=== PATIENT | male | born 1960 | race Caucasian/White ===

== ENCOUNTER 2021-08-12 16:21 | Outpatient (REF) | payer OTHER, SELFPAY ==
[2021-08-12 18:49] LABS: Abs Immature Grans 0.04 10^3/uL (0.0-0.06); Absolute Basophil Count 0.01 10^3/uL (0.0-0.2); Absolute Eosinophil Count 0.01 10^3/uL (0.0-0.7); Absolute Lymphocyte Count 0.44 10^3/uL (1.2-3.4); Absolute Monocyte Count 0.14 10^3/uL (0.1-0.8); Absolute Neutrophil Count 5.02 10^3/uL (1.2-6.7); Basophils % 0.2; Eosinophils % 0.2; HCT 29.5 % (40.0-50.0); HGB 9.1 g/dL (13.5-17.5); Immature Grans % 0.7; Lymphocytes % 7.8; MCH 29.4 pg (27.0-33.0); MCHC 30.8 % (32.0-36.0); MCV 95.5 fL (80-95); MPV 11.5 fL (8.0-11.0); Monocytes % 2.5; Neutrophils % 88.6; Nucleated RBC 0 %; Platelet Count 145 10^3/uL (130-400); RBC 3.09 10^6/uL (4.36-5.78); RDW 17.8 % (11.8-14.1); RDW-SD 62.3 fL; WBC 5.66 10^3/uL (4.4-10.8)
[2021-08-12 19:06] LABS: ALT 15 U/L (16-63); AST 27 U/L (15-37); Albumin 2.1 g/dL (3.4-5.0); Alkaline Phosphatase 102 U/L (46-116); Anion Gap 10.3 mmol/L (3-11); BUN 26 mg/dL (7-18); Bilirubin, Total 0.2 mg/dL (0.2-1.0); CO2 23.7 mmol/L (21.0-32.0); CREATININE 1.2 mg/dL (0.70-1.30); Calcium 7.8 mg/dL (8.5-10.1); Chloride 102 mmol/L (98-107); Glucose 120 mg/dL (74-106); Potassium 4.3 mmol/L (3.5-5.1); Sodium 136 mmol/L (136-145); Total Protein 5.1 g/dL (6.4-8.2)
== END 2021-08-12 16:22 | disposition home or self-care (01) ==
LOC: LBN 16:21
PROVIDERS: PCP Nurse Practitioner; Visit Provider Nurse Practitioner Family
DX: C34.90 Malignant neoplasm of unspecified part of unspecified bronchus or lung (principal)
CPT/HCPCS: 80053; 85025

== ENCOUNTER 2021-08-18 11:03 | Emergency (ER) | payer OTHER, SELFPAY ==
[2021-08-18] VITALS (35 sets, daily range): BP systolic 80–126; BP diastolic 37–74; PULSE 40–112; RESP 11–31; TEMP 36.7; O2SAT 91–98
--- NOTE | 2021-08-18 11:35 | ED.GENADUL_ITS ---
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 Primary Care Provider: Forrest Allred ED Provider: Delta Kolb Home Meds and New Rx's Prescriptions: New dexamethasone 4 mg tablet 4 mg PO BID 10 Days Qty: 20 RF: 0 Continued methocarbamol 500 mg Tablet 500 mg PO QID RF: 0 thiamine HCl (vitamin B1) 100 mg Tablet 100 mg PO DAILY RF: 0 melatonin 3 mg Tablet 3 mg PO HS RF: 0 sulfamethoxazole-trimethoprim 800-160 mg Tablet See Rx Instructions .ROUTE .COMPLEX RF: 0 omeprazole 40 mg Capsule,Delayed Release(Dr/Ec) 40 mg PO DAILY RF: 0 acetaminophen 500 mg Tablet 1,000 mg PO BID RF: 0 oxycodone 15 mg Tablet 15 mg PO Q4H PRN (Reason: Pain) RF: 0 magnesium hydroxide 400 mg/5 mL Suspension 30 ml PO PRN PRNRF: 0 tamsulosin 0.4 mg Capsule 0.4 mg PO DAILY RF: 0 carboxymethylcellulose sodium 0.5 % Drops 1 drp ophthalmic (eye) QID RF: 0 ascorbic acid (vitamin C) 250 mg Tablet 250 mg PO DAILY RF: 0 bisacodyl [Dulcolax (bisacodyl)] 10 mg Suppository 10 mg DE PRN PRN (Reason: Constipation) RF: 0 lidocaine 5 % Adhesive Patch,Medicated 1 patch topical DAILY RF: 0 Fleet Enema 19-7 gram/118 mL Enema 118 ml DE PRN PRNRF: 0 folic acid 1 mg Tablet 1 mg PO DAILY RF: 0 mirtazapine 15 mg Tablet 15 mg PO DAILY RF: 0 polyethylene glycol Powder 1 pwd MISCELLANEOUS DAILY PRNRF: 0 enoxaparin 80 mg/0.8 mL Syringe 80 mg subcut BID RF: 0 memantine 10 mg Tablet 10 mg PO BID RF: 0 diclofenac sodium 1 % Gel 1 applic TOPICAL TID PRN (Reason: Pain) RF: 0 oxycodone 15 mg Tablet Extended Release 12 Hr 15 mg PO BID RF: 0 magnesium oxide 400 mg magnesium Tablet 400 mg PO DAILY RF: 0 No Action dexamethasone 4 mg Tablet 4 mg PO DAILY RF: 0 Discharge Instructions Additional Instructions: I discussed your case today with your Esthela as well as your palliative care team at the [facility], [facility]. Your care team requested we increase dexamethasone back to 4 mg twice daily. May apply the calmoseptine to affected area of the left groin 2-4 times daily and after incontinence. Tamsulosin is working towards getting you transferred there towards the end of the week. Your imaging today showed persistent left leg DVT as well as what appears to be a new bladder mass that is started to obstruct the outflow of the left kidney. You should have repeat basic chemistries performed in 48 hours. Medical Decision Making 61-year-old male with widely metastatic carcinoma who is DNR/DNI and living at rehabilitation facility presents with what is reported to be days of pelvic edema and skin ulceration, now with slight hypotension. He also has a history of DVT and is anticoagulated. He has inguinal ulceration on the left with firm indurated skin surrounding. I am concerned for underlying carcinoma. Patient IV access established, given a fluid bolus. Referred for laboratory testing, CT imaging, and a wound consult was obtained. The patient has what appears to be new left-sided urinary bladder mass causing moderate left hydronephrosis. There is diffuse edema in the subcutaneous tissues as well as heterogeneous enhancement of the left pelvic and thigh musculature, there are sclerotic lesions in the L2 vertebral body. See formal report. Patient has had a known DVT for which she is anticoagulated, today there is evidence of persistent perineal/tibial trunk thrombosis. Review awake labs reveal white count 6, hematocrit 29, platelets 159. Chemistries show BUN 20 with creatinine 1.1. LFTs unremarkable. Albumin 2.0. Patient evaluated in consultation by wound management and we will have the patient use calmoseptine 2-4 times per day and after incontinent episodes. The patient's blood pressure improved with fluid resuscitation. I discussed his case with his Esthela who states her understanding was he was referred to the ER so that he may be transferred to the [facility] to the palliative care service. I spoke to both the house steward/stewardess at the [facility] as well as the patient's palliative care team, [facility]. They are unable to accept in transfer but are hopeful that the patient may able to transfer towards the end of the week. I will fax our work-up today to their attention at [phone]. Patient is improved. He will require close monitoring and further discussion with oncology of pursuing more treatment. [facility] I will return him to dexamethasone 4 mg twice daily, I will ask for labs to be checked every 48 hours, and they will continue to work towards transferring towards the end of the week. Radiology report: Lung Bases: There is a small left pleural effusion and subjacent infiltrate which may represent atelectasis or pneumonia. Basilar pulmonary fibrosis. Coronary artery calcifications. Liver: Normal density. No measurable mass. Portal, Superior Mesenteric, and Splenic Veins: Unremarkable. Gallbladder and Biliary Tract: No radiodense calculus or dilation. Pancreas: Normal density, no abnormal calcifications or inflammatory process. Spleen: Normal. Adrenals: Both adrenal glands are thickened. The left adrenal gland measures 2.3 x 2.9 cm. The right adrenal gland measures 2.4 x 1.2 cm. Kidneys: The right kidney is unremarkable without evidence of hydronephrosis, calculus or mass. There is moderate hydronephrosis of the left kidney to the level of the urinary bladder. There is asymmetric thickening along the left aspect of the wall of the urinary bladder suspicious for mass. Urinary bladder neoplasm should be considered. The focal wall thickening measures 5.3 x 1.8 cm. No radiodense stones or obstructive uropathy. No masses seen. Abdominal Aorta: Abdominal portion non-dilated. Moderate atherosclerosis. Bowel: No obstruction or bowel wall thickening. Appendix is unremarkable. There is diverticulosis of the colon, but no evidence of acute diverticulitis. Peritoneal Cavity: No ascites, collection or mesenteric inflammatory response. No free air. Lymph Nodes: There are enlarged lymph nodes seen in the inguinal region. The largest on the left measures 1.5 cm. The largest on the right measures 1.8 cm. Bones: There are sclerotic foci seen in the L2 vertebral body, in the pelvis and right femur suspicious for metastatic disease. Soft Tissues: There is diffuse edema in the subcutaneous tissues consistent with anasarca. There is heterogeneous enhancement of the left pelvic and thigh musculature. (Series 7, image [id number].) PELVIS: Bladder: Please see the above discussion. Reproductive Organs: Unremarkable as visualized. Lymph Nodes: Within normal limits. Bones: Findings of osseous metastatic disease as described above. IMPRESSION: 1. Left-sided urinary bladder mass causing moderate left hydronephrosis. Bladder neoplasm is suspected. 2. Bilateral enlarged adrenal glands, sclerotic bony lesions and enlarged pelvic lymph nodes suspicious for metastatic disease 3. Small left pleural effusion and subjacent infiltrate. Lab Data Lab results reviewed: Yes I reviewed the patient's lab results. Labs: Laboratory Results - last 24 hr 08/18/21 08/18/21 08/18/21 11:35 11:35 14:55 WBC 6.87 RBC 3.07 L Hgb 9.2 L Hct 29.8 L MCV 97.1 H MCH 30.0 MCHC 30.9 L RDW 17.7 H Plt Count 159 MPV 10.6 Immature Gran % 0.6 Neutrophils % 86.6 Lymphocytes % 6.6 Monocytes % 6.0 Eosinophils % 0.1 Basophils % 0.1 Nucleated RBC % 0 Absolute Neutrophils 5.95 Absolute Lymphocytes 0.45 L Absolute Monocytes 0.41 Absolute Eosinophils 0.01 Absolute Basophils 0.01 Sodium 138 Potassium 3.5 Chloride 104 Carbon Dioxide 25.4 Anion Gap 8.6 BUN 20 H Creatinine 1.1 Estimated GFR/1.73 m2 >= 60.00 Glucose 95 Calcium 7.9 L Magnesium 1.8 Total Bilirubin 0.3 AST 24 ALT 13 L Alkaline Phosphatase 92 Total Protein 5.6 L Albumin 2.0 L Urine Color Yellow Urine Clarity Clear Urine pH 7.0 Ur Specific Benton 1.015 Urine Protein Trace H Urine Ketones 15 H Urine Blood Negative Urine Nitrite Negative Urine Bilirubin Negative Urine Urobilinogen 0.2 Ur Leukocyte Esterase Negative Urine RBC Negative Urine WBC 0-2 Ur Epithelial Cells Few Urine Crystals Negative Urine Bacteria Negative Urine Mucus Negative Ur Culture Indicated? No Urine Glucose Negative HPI General Mode of arrival: ambulatory . Date/Time Provider Initiated Documentation: 08/18/21 11:04 . Limitations to Documentation: no limitations . Information obtained by: patient . History of Present Illness 61 year old M presents to the emergency department with the chief complaint of Pelvic edema and skin ulcerations, described as moderate, Quality is described as dull and constant, Patient reports no radiation. Patient started experiencing this unknown and it has been constant. No relieving factors improve symptom(s), No exacerbating factors reported . Patient notes rash; denies fever/chills. Related Data Home Medications Medication Instructions Recorded Confirmed Fleet Enema 118 ml DE PRN PRN 08/18/21 08/18/21 acetaminophen 1,000 mg PO BID 08/18/21 08/18/21 ascorbic acid (vitamin C) 250 mg PO DAILY 08/18/21 08/18/21 bisacodyl [Dulcolax (bisacodyl)] 10 mg DE PRN PRN 08/18/21 08/18/21 carboxymethylcellulose sodium 1 drp OPHTHALMIC (EYE) QID 08/18/21 08/18/21 dexamethasone 4 mg PO BID 10 Days #20 tab 08/18/21 dexamethasone 4 mg PO DAILY 08/18/21 08/18/21 diclofenac sodium 1 applic TOPICAL TID PRN 08/18/21 08/18/21 enoxaparin 80 mg SUBCUT BID 08/18/21 08/18/21 folic acid 1 mg PO DAILY 08/18/21 08/18/21 lidocaine 1 patch TOPICAL DAILY 08/18/21 08/18/21 magnesium hydroxide 30 ml PO PRN PRN 08/18/21 08/18/21 magnesium oxide 400 mg PO DAILY 08/18/21 08/18/21 melatonin 3 mg PO HS 08/18/21 08/18/21 memantine 10 mg PO BID 08/18/21 08/18/21 methocarbamol 500 mg PO QID 08/18/21 08/18/21 mirtazapine 15 mg PO DAILY 08/18/21 08/18/21 omeprazole 40 mg PO DAILY 08/18/21 08/18/21 oxycodone 15 mg PO BID 08/18/21 08/18/21 oxycodone 15 mg PO Q4H PRN 08/18/21 08/18/21 polyethylene glycol 1 pwd MISCELLANEOUS DAILY PRN 08/18/21 08/18/21 sulfamethoxazole-trimethoprim See Rx Instructions .ROUTE .COMPLEX 08/18/21 08/18/21 tamsulosin 0.4 mg PO DAILY 08/18/21 08/18/21 thiamine HCl (vitamin B1) 100 mg PO DAILY 08/18/21 08/18/21 Previous Rx's Medication Instructions Recorded dexamethasone 4 mg PO BID 10 Days #20 tab 08/18/21 Allergies Allergy/AdvReac Type Severity Reaction Status Date / Time atorvastatin Allergy Unverified 08/18/21 12:09 codeine Allergy Unverified 08/18/21 12:09 General Stated Complaint: GenMedical AD: 2 Review of Systems Narrative: Patient unable to relate recent history. Unobtainable due to mental status PFSH Social History Smoking risk assessment performed?: No Do you feel safe at home: Yes Do you feel safe in your relationship?: Yes Exam Narrative Exam Narrative: GEN: awake,well groomed, interactive. HEAD: Normocephalic, atraumatic ENT: Mucous membranes moist, oropharynx unremarkable, External ear exam unremarkable EYES: PERRL, EOMI NECK: Full ROM, no PRADEEP, no menigismus CHEST/RESP: Nontender, clear to auscultation bilateral, no wheeze/rhonchi/rales CARDIOVASCULAR: RRR, no murmur, rub dallin. 2+ Rad pulse bilateral ABDOMEN: Soft, nontender, no mass. +Bowel sounds Pelvic: There is scrotal edema, perineal edema, left inguinal skin ulceration present. The surrounding left and right inguinal creases are firm and thickened superficial tissues. EXT: Full ROM, left greater than right lower extremity edema. Neuro: Grossly normal neurologic exam, conversant, interactive but not oriented to time or place. Psych: Speech fluent, thoughts congruent, affect normal Course Vital Signs Vital signs: Vital Signs Temperature 36.7 C 08/18/21 11:08 Pulse 55 L 08/18/21 11:08 Respiratory Rate 16 08/18/21 11:08 Blood Pressure 80/46 L 08/18/21 11:08 Pulse Oximetry 93 08/18/21 11:08 Temperature 36.7 C 08/18/21 11:08 Temperature Source Skin 08/18/21 11:08 Pulse 55 L 08/18/21 11:08 Respiratory Rate 16 08/18/21 11:08 Blood Pressure 80/46 L 08/18/21 11:08 Blood Pressure Position Supine 08/18/21 11:08 Pulse Oximetry 93 08/18/21 11:08 Oxygen Delivery Method Room Air 08/18/21 11:08 Oxygen Flow Rate 0 08/18/21 11:08 Pain Level 7 08/18/21 11:08
[2021-08-18 11:45] LABS: Abs Immature Grans 0.04 10^3/uL (0.0-0.06); Absolute Basophil Count 0.01 10^3/uL (0.0-0.2); Absolute Eosinophil Count 0.01 10^3/uL (0.0-0.7); Absolute Lymphocyte Count 0.45 10^3/uL (1.2-3.4); Absolute Monocyte Count 0.41 10^3/uL (0.1-0.8); Absolute Neutrophil Count 5.95 10^3/uL (1.2-6.7); Basophils % 0.1; Eosinophils % 0.1; HCT 29.8 % (40.0-50.0); HGB 9.2 g/dL (13.5-17.5); Immature Grans % 0.6; Lymphocytes % 6.6; MCHC 30.9 % (32.0-36.0); MCV 97.1 fL (80-95); MPV 10.6 fL (8.0-11.0); Neutrophils % 86.6; Nucleated RBC 0 %; Platelet Count 159 10^3/uL (130-400); RBC 3.07 10^6/uL (4.36-5.78); RDW 17.7 % (11.8-14.1); RDW-SD 62.8 fL; WBC 6.87 10^3/uL (4.4-10.8)
[2021-08-18] MEDS: Normal Saline 1,000 ML 1000 ML IV ×2 (11:53→14:26)
[2021-08-18 11:58] LABS: ALT 13 U/L (16-63); AST 24 U/L (15-37); Alkaline Phosphatase 92 U/L (46-116); Anion Gap 8.6 mmol/L (3-11); BUN 20 mg/dL (7-18); Bilirubin, Total 0.3 mg/dL (0.2-1.0); CO2 25.4 mmol/L (21.0-32.0); CREATININE 1.1 mg/dL (0.70-1.30); Calcium 7.9 mg/dL (8.5-10.1); Chloride 104 mmol/L (98-107); Glucose 95 mg/dL (74-106); Magnesium 1.8 mg/dL (1.8-2.4); Potassium 3.5 mmol/L (3.5-5.1); Sodium 138 mmol/L (136-145); Total Protein 5.6 g/dL (6.4-8.2)
--- NOTE | 2021-08-18 12:00 | DI.US_ITS ---
Exam(s) US LOWER EXTREMITY VENOUS LT EXAM: US LOWER EXTREMITY VENOUS LT CLINICAL HISTORY: metastatic cancer, swelling TECHNIQUE: Left lower extremity venous ultrasound performed using grayscale, color-flow, and spectra l Doppler analysis. COMPARISON: No exams were available for comparison FINDINGS: The left common femoral, femoral and popliteal veins demonstrate normal compressibility, augmentation , and color Doppler. The posterior tibial veins are patent. There is thrombus seen in the proximal l eft peroneal vein. It measures 4 cm in length. The saphenofemoral junction is unremarkable. There is no evidence of a Doyle cyst. The soft tissues are unremarkable. IMPRESSION: Thrombus seen in the left peroneal vein measuring 4 cm in length. DATA REPOSITORY:
--- NOTE | 2021-08-18 12:15 | DI.RAD_ITS ---
Exam(s) XR PORTABLE CHEST AP EXAM: XR PORTABLE CHEST AP CLINICAL HISTORY: Question power port, hx lung cancer TECHNIQUE: 2D digital imaging was performed of the chest. Two images were obtained. AP views were obtained. COMPARISON: No exams were available for comparison FINDINGS: MEDIASTINUM: Normal. HEART: Normal. PULMONARY VASCULATURE: Normal. LUNGS: No focal consolidating infiltrates. Mildly prominent and diffuse interstitial markings. This may be chronic, but a pneumonia or pulmonary edema cannot be excluded. PLEURAL SPACE: No pleural effusion or pneumothorax. BONE:Within normal limits for the patient's age. OTHER FINDINGS:The right IJ catheter is in good position. The tip is at the junction of the superior vena cava and right atrium. IMPRESSION: Mild prominence of the interstitium. This may be chronic, however an acute pneumonia or pulmonary ed thu cannot be excluded. DATA REPOSITORY: RADIATION DOSE DELIVERED:
--- NOTE | 2021-08-18 13:06 | DI.CT_ITS ---
Exam(s) CT ABDOMEN PELVIS W EXAM: CT ABDOMEN PELVIS W CLINICAL HISTORY: met cancer, pelvic congestion, edema, skin ulcerat TECHNIQUE: Imaging Protocol: Axial computed tomography images with coronal and sagittal reformatted images were created and reviewed CONTRAST MATERIAL: Intravenous: Omnipaque 350 Contrast volume:100 mL Oral: No COMPARISON: No exams were available for comparison FINDINGS: Results of this exam have been verbally communicated with provider. ABDOMEN: Lung Bases: There is a small left pleural effusion and subjacent infiltrate which may represent atele ctasis or pneumonia. Basilar pulmonary fibrosis. Coronary artery calcifications. Liver: Normal density. No measurable mass. Portal, Superior Mesenteric, and Splenic Veins: Unremarkable. Gallbladder and Biliary Tract: No radiodense calculus or dilation. Pancreas: Normal density, no abnormal calcifications or inflammatory process. Spleen: Normal. Adrenals: Both adrenal glands are thickened. The left adrenal gland measures 2.3 x 2.9 cm. The righ t adrenal gland measures 2.4 x 1.2 cm. Kidneys: The right kidney is unremarkable without evidence of hydronephrosis, calculus or mass. Ther e is moderate hydronephrosis of the left kidney to the level of the urinary bladder. There is asymme tric thickening along the left aspect of the wall of the urinary bladder suspicious for mass. Urinar y bladder neoplasm should be considered. The focal wall thickening measures 5.3 x 1.8 cm. No radiod ense stones or obstructive uropathy. No masses seen. Abdominal Aorta: Abdominal portion non-dilated. Moderate atherosclerosis. Bowel: No obstruction or bowel wall thickening. Appendix is unremarkable. There is diverticulosis of the colon, but no evidence of acute diverticulitis. Peritoneal Cavity: No ascites, collection or mesenteric inflammatory response. No free air. Lymph Nodes: There are enlarged lymph nodes seen in the inguinal region. The largest on the left beto sures 1.5 cm. The largest on the right measures 1.8 cm. Bones: There are sclerotic foci seen in the L2 vertebral body, in the pelvis and right femur suspicio us for metastatic disease. Soft Tissues: There is diffuse edema in the subcutaneous tissues consistent with anasarca. There is heterogeneous enhancement of the left pelvic and thigh musculature. (Series 7, image [id number] .) PELVIS: Bladder: Please see the above discussion. Reproductive Organs: Unremarkable as visualized. Lymph Nodes: Within normal limits. Bones: Findings of osseous metastatic disease as described above. IMPRESSION: 1. Left-sided urinary bladder mass causing moderate left hydronephrosis. Bladder neoplasm is suspect ed. 2. Bilateral enlarged adrenal glands, sclerotic bony lesions and enlarged pelvic lymph nodes suspicio us for metastatic disease 3. Small left pleural effusion and subjacent infiltrate. 4. Results of this exam have been verbally communicated with provider. RADIATION DOSE DELIVERED: 832.28mGy.cm Total DLP DATA REPOSITORY: All CT scans at this facility are submitted to the National Radiology Data Registry (NRDR) Dose Index Registry (DIR) with the [employer] ([employer]). RADIATION OPTIMIZATION: All CT scans at this facility use at least one of these dose optimization te chniques: automated exposure control; mA and/or kV adjustment per patient size (includes targeted exa ms where dose is matched to clinical indication); or iterative reconstruction.
[2021-08-18] MEDS: Omnipaque 350 MG/ML 100 ML BTL IJ (13:11)
[2021-08-18] MEDS: Normal Saline Flush 10 ML SYR IVP (13:13)
[2021-08-18 15:17] LABS: Bilirubin Negative (Negative); Blood Negative (Negative); Clarity Clear (Clear); Glucose Negative (Negative); Ketones 15 mg/dL (Negative); Leukocyte Esterase Negative (Negative); Nitrite Negative (Negative); Specific Gravity 1.015 (1.005-1.025); Urobilinogen 0.2 EU/dL (Up TO 0.2)
[2021-08-18] MEDS: HYDROmorphone 2 MG/ML VIAL 0.5 MG IVP (15:33)
[2021-08-18 15:36] LABS: Bacteria Negative HPF (Negative); C & S Indicated? No; Crystals Negative HPF (Negative); Epithelial Cells Few HPF (Negative); Mucus Negative (Negative); RBC Negative HPF (0-2); WBC 0-2 HPF (0-5)
[2021-08-18] MEDS: Dexamethasone 4 MG/ML VIAL IVP (15:38)
[2021-08-18] MEDS: Heparin 500 UNITS/5 ML SYRINGE (16:23)
--- NOTE | 2021-08-18 19:39 | WOUNDCON1 ---
- If Service Date Differs Date of service: 08/18/21 Time of Service: 12:00 Wound Initial Evaluation Narrative: Pt refused photographs. One time opinion requested by MD. Pt has 2 ulcerations on left side of groin and redness. Entire area from pubis down into groin and upper thighs is indurated (hard). Doesn't look infected, MD suspects CA and would appreciate a treatment geared towards comfort. Recommend applying Calmoseptine 2-4 times a day and with each incontinent episode for its soothing effect @ this time. Thank you for the consult.
--- NOTE | 2021-08-19 14:42 | NUR.NOTE ---
Nursing Note: [facility] asking [facility] I accessed the record and told them that [facility]. Ingris Oconnor
== END 2021-08-18 16:25 | disposition skilled nursing facility (03) ==
PROVIDERS: Emergency Provider Emergency Medicine; PCP Nurse Practitioner
DX: C79.11 Secondary malignant neoplasm of bladder (principal); R60.0 Localized edema; L98.498 Non-pressure chronic ulcer of skin of other sites with other specified severity; I95.9 Hypotension, unspecified; I82.492 Acute embolism and thrombosis of other specified deep vein of left lower extremity; C34.90 Malignant neoplasm of unspecified part of unspecified bronchus or lung
CPT/HCPCS: 80053; 96361; 96374; 96375; 99285; 71045; 74177; 81003; 81015; 83735; 85025; 93971; J1100; J3490

== ENCOUNTER 2021-08-21 17:49 | Emergency (ER) | payer OTHER, SELFPAY ==
[2021-08-21 17:49] VITALS: PULSE 66; RESP 14; TEMP 36.9; O2SAT 96
--- NOTE | 2021-08-21 18:22 | ED.GENADUL_ITS ---
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 Primary Care Provider: Forrest Allred ED Provider: Delta Kolb Home Meds and New Rx's Prescriptions: Continued methocarbamol 500 mg Tablet 500 mg PO QID RF: 0 thiamine HCl (vitamin B1) 100 mg Tablet 100 mg PO DAILY RF: 0 melatonin 3 mg Tablet 3 mg PO HS RF: 0 sulfamethoxazole-trimethoprim 800-160 mg Tablet See Rx Instructions .ROUTE .COMPLEX RF: 0 omeprazole 40 mg Capsule,Delayed Release(Dr/Ec) 40 mg PO DAILY RF: 0 acetaminophen 500 mg Tablet 1,000 mg PO BID RF: 0 oxycodone 15 mg Tablet 15 mg PO Q4H PRN (Reason: Pain) RF: 0 magnesium hydroxide 400 mg/5 mL Suspension 30 ml PO PRN PRNRF: 0 tamsulosin 0.4 mg Capsule 0.4 mg PO DAILY RF: 0 carboxymethylcellulose sodium 0.5 % Drops 1 drp ophthalmic (eye) QID RF: 0 ascorbic acid (vitamin C) 250 mg Tablet 250 mg PO DAILY RF: 0 bisacodyl [Dulcolax (bisacodyl)] 10 mg Suppository 10 mg CO PRN PRN (Reason: Constipation) RF: 0 dexamethasone 4 mg Tablet 4 mg PO DAILY RF: 0 lidocaine 5 % Adhesive Patch,Medicated 1 patch topical DAILY RF: 0 Fleet Enema 19-7 gram/118 mL Enema 118 ml CO PRN PRNRF: 0 folic acid 1 mg Tablet 1 mg PO DAILY RF: 0 mirtazapine 15 mg Tablet 15 mg PO DAILY RF: 0 polyethylene glycol Powder 1 pwd MISCELLANEOUS DAILY PRNRF: 0 enoxaparin 80 mg/0.8 mL Syringe 80 mg subcut BID RF: 0 memantine 10 mg Tablet 10 mg PO BID RF: 0 diclofenac sodium 1 % Gel 1 applic TOPICAL TID PRN (Reason: Pain) RF: 0 oxycodone 15 mg Tablet Extended Release 12 Hr 15 mg PO BID RF: 0 magnesium oxide 400 mg magnesium Tablet 400 mg PO DAILY RF: 0 dexamethasone 4 mg tablet 4 mg PO BID 10 Days Qty: 20 RF: 0 Discharge Instructions Additional Instructions: You had a Rendon catheter placed which should remain draining till gravity bag. May trial voiding after removal of Rendon catheter in 3 days. I discussed your case with the on-call physician at the [facility] in [facility]. They are unable to take you in transfer [facility] but will have the palliative care team follow-up with you tomorrow. Continue your medications. Your renal function today was improved with a BUN of 19 and creatinine of 0.9. Medical Decision Making 61-year-old male living at local retirement presents as he has not voided in 12 hours and staff was unable to have Rendon successfully inserted. Patient is known to me from his visit to the ER on August 18 CT revealed new cancer of the bladder as well as concerning findings for metastatic disease to the left thigh and inguinal region. Today, chemistries show a BUN of 19 with creatinine 0.9. This is improved from previous. Rendon catheter was placed with clear urine present. As the patient has been pending placement to the palliative care service at the [facility] I did discuss transfer with them tonight. Physician on-call felt the patient best served by placing a Rendon catheter [facility] and circling back with palliative care team tomorrow. Patient will return to rehabilitation facility [facility] HPI General Mode of arrival: ambulatory . Date/Time Provider Initiated Documentation: 08/21/21 18:09 . Limitations to Documentation: no limitations . Information obtained by: patient . History of Present Illness 61 year old M presents to the emergency department with the chief complaint of No urine output, Patient started experiencing this hour(s) No relieving factors improve symptom(s), No exacerbating factors reported . Patient did receive the following treatments prior to arrival, none Related Data Home Medications Medication Instructions Recorded Confirmed Fleet Enema 118 ml CO PRN PRN 08/18/21 08/18/21 acetaminophen 1,000 mg PO BID 08/18/21 08/18/21 ascorbic acid (vitamin C) 250 mg PO DAILY 08/18/21 08/18/21 bisacodyl [Dulcolax (bisacodyl)] 10 mg CO PRN PRN 08/18/21 08/18/21 carboxymethylcellulose sodium 1 drp OPHTHALMIC (EYE) QID 08/18/21 08/18/21 dexamethasone 4 mg PO BID 10 Days #20 tab 08/18/21 dexamethasone 4 mg PO DAILY 08/18/21 08/18/21 diclofenac sodium 1 applic TOPICAL TID PRN 08/18/21 08/18/21 enoxaparin 80 mg SUBCUT BID 08/18/21 08/18/21 folic acid 1 mg PO DAILY 08/18/21 08/18/21 lidocaine 1 patch TOPICAL DAILY 08/18/21 08/18/21 magnesium hydroxide 30 ml PO PRN PRN 08/18/21 08/18/21 magnesium oxide 400 mg PO DAILY 08/18/21 08/18/21 melatonin 3 mg PO HS 08/18/21 08/18/21 memantine 10 mg PO BID 08/18/21 08/18/21 methocarbamol 500 mg PO QID 08/18/21 08/18/21 mirtazapine 15 mg PO DAILY 08/18/21 08/18/21 omeprazole 40 mg PO DAILY 08/18/21 08/18/21 oxycodone 15 mg PO BID 08/18/21 08/18/21 oxycodone 15 mg PO Q4H PRN 08/18/21 08/18/21 polyethylene glycol 1 pwd MISCELLANEOUS DAILY PRN 08/18/21 08/18/21 sulfamethoxazole-trimethoprim See Rx Instructions .ROUTE .COMPLEX 08/18/21 08/18/21 tamsulosin 0.4 mg PO DAILY 08/18/21 08/18/21 thiamine HCl (vitamin B1) 100 mg PO DAILY 08/18/21 08/18/21 Previous Rx's Medication Instructions Recorded dexamethasone 4 mg PO BID 10 Days #20 tab 08/18/21 Allergies Allergy/AdvReac Type Severity Reaction Status Date / Time atorvastatin Allergy Unverified 08/21/21 17:58 codeine Allergy Unverified 08/21/21 17:58 General Stated Complaint: Urinary AD: 3 Review of Systems Narrative: Unable to place Rendon catheter at retirement. [facility] Social History Smoking/Tobacco Use Status: Unknown Smoking risk assessment performed?: Yes Do you feel safe at home: Yes Do you feel safe in your relationship?: Yes Exam Narrative Exam Narrative: GEN: awake, well groomed, interactive. HEAD: Normocephalic, atraumatic EYES: PERRL, EOMI NECK: Full ROM, no PRADEEP, no menigismus CHEST/RESP: Nontender, clear to auscultation bilateral, no wheeze/rhonchi/rales CARDIOVASCULAR: RRR, no murmur, rub dallin. 2+ Rad pulse bilateral ABDOMEN: Soft, nontender, no mass. +Bowel sounds Inguinal region with erosive changes to left groin skin/ulceration, there is woody induration of the skin. Edematous changes to penis. EXT: Full ROM, no edema, no rash Neuro: Grossly normal neurologic exam, conversant, interactive. Psych: Speech fluent, thoughts congruent, affect normal Course Vital Signs Vital signs: Vital Signs Temperature 36.9 C 08/21/21 17:49 Pulse 66 08/21/21 17:49 Respiratory Rate 14 08/21/21 17:49 Pulse Oximetry 96 08/21/21 17:49 Temperature 36.9 C 08/21/21 17:49 Temperature Source Oral 08/21/21 17:49 Pulse 66 08/21/21 17:49 Respiratory Rate 14 08/21/21 17:49 Respiratory Effort Non-Labored 08/21/21 17:56 Blood Pressure Position Supine 08/21/21 17:49 Pulse Oximetry 96 08/21/21 17:49 Oxygen Delivery Method Room Air 08/21/21 17:49 Oxygen Flow Rate 0 08/21/21 17:49
[2021-08-21 18:49] LABS: Anion Gap 6.6 mmol/L (3-11); BUN 19 mg/dL (7-18); CO2 26.4 mmol/L (21.0-32.0); CREATININE 0.9 mg/dL (0.70-1.30); Calcium 8.2 mg/dL (8.5-10.1); Chloride 101 mmol/L (98-107); Glucose 111 mg/dL (74-106); HCT 33.2 % (40.0-50.0); HGB 10.2 g/dL (13.5-17.5); MCHC 30.7 % (32.0-36.0); MCV 97.6 fL (80-95); MPV 10.9 fL (8.0-11.0); Platelet Count 196 10^3/uL (130-400); Potassium 3.9 mmol/L (3.5-5.1); RDW 17.8 % (11.8-14.1); RDW-SD 64.7 fL; Sodium 134 mmol/L (136-145); WBC 6.76 10^3/uL (4.4-10.8)
[2021-08-21] MEDS: Lidocaine 2% Jelly 11 ML SYR UR (19:08)
== END 2021-08-21 21:36 | disposition skilled nursing facility (03) ==
PROVIDERS: Emergency Provider Emergency Medicine; PCP Nurse Practitioner
DX: C67.9 Malignant neoplasm of bladder, unspecified (principal); R39.198 Other difficulties with micturition
CPT/HCPCS: 36415; 51702; 80048; 85027; 99283

== ENCOUNTER 2021-08-24 09:02 | Emergency (ER) | payer OTHER, SELFPAY ==
[2021-08-24] VITALS (42 sets, daily range): BP systolic 44–137; BP diastolic 17–101; PULSE 59–170; RESP 14–30; TEMP 36.6; O2SAT 83–86
--- NOTE | 2021-08-24 09:00 | RT.EKG_ITS ---
APPROVED REPORT Exam: Resting ECG Reason for Exam: tachycardia Patient Location: E HR:121 bpm ECG Measurements Heart Rate 121 AXIS CO 147 P 60 QRSd 93 QRS 66 QT 321 T 52 QTc 452 Conclusion Sinus tachycardia...rate> 99 Multiple ventricular premature complexes...V complexes w/ short R-R intervls Probable left atrial enlargement...P >50mS, <-0.10mV V1 Low voltage, extremity leads...all extremity leads <0.5mV sinus tachycardia at 121, frequent PVCs, normal axis, no STEMI, nondiagnostic EKG
--- NOTE | 2021-08-24 09:15 | DI.RAD_ITS ---
Exam(s) XR PORTABLE CHEST AP EXAM: XR PORTABLE CHEST AP CLINICAL HISTORY: SOB. TECHNIQUE: 2D digital imaging was performed. COMPARISON: CR XR PORTABLE CHEST AP from 08/18/2021 FINDINGS: Heart size is normal. Distal tip of the right clavi in Port-A-Cath is at the SVC-RA junction. The mediastinum is not widened. Bilateral interstitial lung disease appears unchanged. However, there is subtle suggestion of possib le developing infiltrate in the lower left lung field. No pleural effusions. IMPRESSION: COPD. Bilateral interstitial lung disease, possibly chronic. There are no pleural effusions. Howev er, there appears to be subtle increasing markings in the lower 3rd of the left lung field. This may represent early infiltrate. DATA REPOSITORY: RADIATION DOSE DELIVERED: All CT scans at this facility use at least one of these dose optimization techniques: automated exposure control; mA and/or kV adjustment per patient size (includes targeted e xams where dose is matched to clinical indication); or iterative reconstruction.
--- NOTE | 2021-08-24 09:19 | W.ED.GENAD ---
Discharge Plan Disposition Patient Disposition: Discharge Details Chief Complaint: GenMedical Clinical Impression: Respiratory failure, Circulatory collapse Primary Care Provider: Forrest Allred ED Provider: Asuncion Moscoso Home Meds and New Rx's Prescriptions: No Action methocarbamol 500 mg Tablet 500 mg PO QID RF: 0 thiamine HCl (vitamin B1) 100 mg Tablet 100 mg PO DAILY RF: 0 melatonin 3 mg Tablet 3 mg PO HS RF: 0 sulfamethoxazole-trimethoprim 800-160 mg Tablet See Rx Instructions .ROUTE .COMPLEX RF: 0 omeprazole 40 mg Capsule,Delayed Release(Dr/Ec) 40 mg PO DAILY RF: 0 acetaminophen 500 mg Tablet 1,000 mg PO BID RF: 0 oxycodone 15 mg Tablet 15 mg PO Q4H PRN (Reason: Pain) RF: 0 magnesium hydroxide 400 mg/5 mL Suspension 30 ml PO PRN PRNRF: 0 tamsulosin 0.4 mg Capsule 0.4 mg PO DAILY RF: 0 carboxymethylcellulose sodium 0.5 % Drops 1 drp ophthalmic (eye) QID RF: 0 ascorbic acid (vitamin C) 250 mg Tablet 250 mg PO DAILY RF: 0 bisacodyl [Dulcolax (bisacodyl)] 10 mg Suppository 10 mg [place] PRN PRN (Reason: Constipation) RF: 0 dexamethasone 4 mg Tablet 4 mg PO DAILY RF: 0 lidocaine 5 % Adhesive Patch,Medicated 1 patch topical DAILY RF: 0 Fleet Enema 19-7 gram/118 mL Enema 118 ml [place] PRN PRNRF: 0 folic acid 1 mg Tablet 1 mg PO DAILY RF: 0 mirtazapine 15 mg Tablet 15 mg PO DAILY RF: 0 polyethylene glycol Powder 1 pwd MISCELLANEOUS DAILY PRNRF: 0 enoxaparin 80 mg/0.8 mL Syringe 80 mg subcut BID RF: 0 memantine 10 mg Tablet 10 mg PO BID RF: 0 diclofenac sodium 1 % Gel 1 applic TOPICAL TID PRN (Reason: Pain) RF: 0 oxycodone 15 mg Tablet Extended Release 12 Hr 15 mg PO BID RF: 0 magnesium oxide 400 mg magnesium Tablet 400 mg PO DAILY RF: 0 Discharge Data Discharge Date/Time-TO BE ENTERED AT DEPARTURE: 08/24/21 15:40 Medical Decision Making Ridge Solano is a 61-year-old man with history of bladder mass, 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 Patient is DNR/DNI. On exam patient is minimally responsive, not following commands, making moaning sounds, moving left upper extremity only. Pt's states that she does not want extreme measures taken in Pt's care, but would like to see him and talk to him and does not want to go to comfort care at this point. Bedside US shows no pericardial effusion, lung sliding b/l, no abdominal free fluid on fast exam. Unclear etiology of respiratory failure and hypotension at this time, concern for CVA, acute aortic process, sepsis, acute coronary syndrome, pulmonary embolism, other. Pt is not a candidate for lytics in the case of CVA or PE given brain mets. Plan for IV placement, IVF hydration, will switch from NRB to high flow O2, screening labs, CT head/chest/abd, plan for broad spectrum abx. Pt SBP initially in 80s after IVF, then dropped into 50s. Plan for levophed. Sats okay on high flow. Pt's , who is an TELECOMMUNICATIONS EQUIPMENT INSTALLER, at bedside. Pt appears to be moaning in pain, unclear source. I had a lengthy conversation with her in which we discussed Pt's prior status and prior poor prognosis. Pt's states that she does not Pt to be uncomfortable. She states that she does want him to have any CT scans as she does not want him to be moved from his bed to the CT scanner as this will likely be uncomfortable for him (Pt appears uncomfortable when repositioned in bed at this time); she states that she would not want Pt to have procedures for possible findings on CT given his known terminal disease. She does want other measures withdrawn at this time as long as Pt remains comfortable. Plan for morphine for pain. Pt's seated at bedside with her sister. Pt has intermittently appeared uncomfortable, moaning. Pt states that Pt is methodist, and she would like memorial designer to be present at bedside prior to moving to comfort care. Will attempt to have memorial designer at bedside. Pt states that family is not from this area, declines my offer to request family's bronze chaser or local bronze chaser. Personal Financial Representative at bedside (some delay as on-call memorial designer was with another Pt at outside facility, no other chaplains available). Pt's states that she would like Pt have comfort measures only, would like high flow O2 to be switched to nasal canula. Levophed, high flow discontinued. Time of 3:40, approximately 1.5 hours after comfort care initiated. Pt's elects for no autopsy. Care management and memorial designer involved with planning for services. Medical Records Medical records reviewed: Yes I reviewed the patient's medical records. Imaging Data Radiologic Study: Attestation: I personally reviewed and interpreted this imaging study as follows: Radiologist's impression: EXAM: XR PORTABLE CHEST AP CLINICAL HISTORY: SOB. TECHNIQUE: 2D digital imaging was performed. COMPARISON: CR XR PORTABLE CHEST AP from 08/18/2021 FINDINGS: Heart size is normal. Distal tip of the right clavi in Port-A-Cath is at the SVC-RA junction. The mediastinum is not widened. Bilateral interstitial lung disease appears unchanged. However, there is subtle suggestion of possible developing infiltrate in the lower left lung field. No pleural effusions. IMPRESSION: COPD. Bilateral interstitial lung disease, possibly chronic. There are no pleural effusions. However, there appears to be subtle increasing markings in the lower 3rd of the left lung field. This may represent early infiltrate. Lab Data Lab results reviewed: Yes I reviewed the patient's lab results. Labs: 08/24/21 12:08 Nose MRSA Screen - Final Laboratory Tests Range/Units 08/24/21 08/24/21 08/24/21 09:11 09:11 09:11 WBC (4.4-10.8) 10^3/uL 2.15 L RBC (4.36-5.78) 10^6/uL 3.25 L Hgb (13.5-17.5) g/dL 9.8 L Hct (40.0-50.0) % 32.1 L MCV (80-95) fL 98.8 H MCH (27.0-33.0) pg 30.2 MCHC (32.0-36.0) % 30.5 L RDW (11.8-14.1) % 17.9 H Plt Count (130-400) 10^3/uL 128 L MPV (8.0-11.0) fL 10.7 Immature Gran % 0.0 Neutrophils % 75.0 Band Neutrophils % 12 Lymphocytes % 9.0 Monocytes % 2.0 Eosinophils % 0.0 Basophils % 0.0 Metamyelocytes % 2 Nucleated RBC % % 0 Absolute Neutrophils (1.2-6.7) 10^3/uL 1.87 Absolute Lymphocytes (1.2-3.4) 10^3/uL 0.19 L Absolute Monocytes (0.1-0.8) 10^3/uL 0.04 L Absolute Eosinophils (0.0-0.7) 10^3/uL 0.00 Absolute Basophils (0.0-0.2) 10^3/uL 0.00 RBC Morphology Normal VBG Lactate (0.6-1.4) mmol/L 7.9 H* Sodium (136-145) mmol/L 134 L Potassium (3.5-5.1) mmol/L 4.2 Chloride (98-107) mmol/L 102 Carbon Dioxide (21.0-32.0) mmol/L 19.1 L Anion Gap (3-11) mmol/L 12.9 H BUN (7-18) mg/dL 23 H Creatinine (0.70-1.30) mg/dL 1.6 H D Estimated GFR/1.73 m2 (mL/min/1.73m2) 43.87 Glucose (74-106) mg/dL 78 Calcium (8.5-10.1) mg/dL 8.0 L Magnesium (1.8-2.4) mg/dL 1.7 L Total Bilirubin (0.2-1.0) mg/dL 0.5 AST (15-37) U/L 102 H ALT (16-63) U/L 32 Alkaline Phosphatase (46-116) U/L 278 H Troponin I (<0.06) ng/mL < 0.05 Total Protein (6.4-8.2) g/dL 5.2 L Albumin (3.4-5.0) g/dL 1.7 L COVID-19 Source SARS-CoV-2 (PCR) (Negative) Range/Units 08/24/21 08/24/21 12:05 12:08 WBC (4.4-10.8) 10^3/uL RBC (4.36-5.78) 10^6/uL Hgb (13.5-17.5) g/dL Hct (40.0-50.0) % MCV (80-95) fL MCH (27.0-33.0) pg MCHC (32.0-36.0) % RDW (11.8-14.1) % Plt Count (130-400) 10^3/uL MPV (8.0-11.0) fL Immature Gran % Neutrophils % Band Neutrophils % Lymphocytes % Monocytes % Eosinophils % Basophils % Metamyelocytes % Nucleated RBC % % Absolute Neutrophils (1.2-6.7) 10^3/uL Absolute Lymphocytes (1.2-3.4) 10^3/uL Absolute Monocytes (0.1-0.8) 10^3/uL Absolute Eosinophils (0.0-0.7) 10^3/uL Absolute Basophils (0.0-0.2) 10^3/uL RBC Morphology VBG Lactate (0.6-1.4) mmol/L Sodium (136-145) mmol/L Potassium (3.5-5.1) mmol/L Chloride (98-107) mmol/L Carbon Dioxide (21.0-32.0) mmol/L Anion Gap (3-11) mmol/L BUN (7-18) mg/dL Creatinine (0.70-1.30) mg/dL Estimated GFR/1.73 m2 (mL/min/1.73m2) Glucose (74-106) mg/dL Calcium (8.5-10.1) mg/dL Magnesium (1.8-2.4) mg/dL Total Bilirubin (0.2-1.0) mg/dL AST (15-37) U/L ALT (16-63) U/L Alkaline Phosphatase (46-116) U/L Troponin I (<0.06) ng/mL Cancelled Total Protein (6.4-8.2) g/dL Albumin (3.4-5.0) g/dL COVID-19 Source Nasal/Nares SARS-CoV-2 (PCR) (Negative) Negative ECG Data Attestation: I personally reviewed and interpreted this ECG (s) as follows: Interpretation: EKG shows sinus tachycardia at 121, frequent PVCs, normal axis, no STEMI, nondiagnostic EKG HPI General Mode of arrival: EMS. Date/Time Provider Initiated Documentation: 08/24/21 09:19. Limitations to Documentation: altered mental status. Information obtained by: family, RN/MD (Staff at rehab facility), EMS, RN notes reviewed and old records reviewed. HPI Narrative: Ridge Solano is a 61-year-old man with history of neoplasm with bladder mass, metastases to spine, brain presenting to the emergency department with unresponsiveness. Patient was apparently quite ill but conversing somewhat earlier this morning per report from [facility] and rehab, then became unresponsive with systolic blood pressure 30, O2 sat in 40s. Patient arrived in the emergency department with systolic blood pressure 50, O2 80s on 15 L nonrebreather. Patient with eyes open, moaning at times, moving left upper extremity only, not following commands. I discussed patient with his over the phone, who concurs with documentation that patient is DNR/DNI, she is aware that patient is dying from his metastatic cancer, however states that she does not want Pt to be made comfort care at this time as she would like to see him before she dies and is driving from 1 hour away. Related Data Home Medications Medication Instructions Recorded Confirmed Fleet Enema 118 ml [place] PRN PRN 08/18/21 08/18/21 acetaminophen 1,000 mg PO BID 08/18/21 08/18/21 ascorbic acid (vitamin C) 250 mg PO DAILY 08/18/21 08/18/21 bisacodyl [Dulcolax (bisacodyl)] 10 mg [place] PRN PRN 08/18/21 08/18/21 carboxymethylcellulose sodium 1 drp OPHTHALMIC (EYE) QID 08/18/21 08/18/21 dexamethasone 4 mg PO DAILY 08/18/21 08/18/21 diclofenac sodium 1 applic TOPICAL TID PRN 08/18/21 08/18/21 enoxaparin 80 mg SUBCUT BID 08/18/21 08/18/21 folic acid 1 mg PO DAILY 08/18/21 08/18/21 lidocaine 1 patch TOPICAL DAILY 08/18/21 08/18/21 magnesium hydroxide 30 ml PO PRN PRN 08/18/21 08/18/21 magnesium oxide 400 mg PO DAILY 08/18/21 08/18/21 melatonin 3 mg PO HS 08/18/21 08/18/21 memantine 10 mg PO BID 08/18/21 08/18/21 methocarbamol 500 mg PO QID 08/18/21 08/18/21 mirtazapine 15 mg PO DAILY 08/18/21 08/18/21 omeprazole 40 mg PO DAILY 08/18/21 08/18/21 oxycodone 15 mg PO BID 08/18/21 08/18/21 oxycodone 15 mg PO Q4H PRN 08/18/21 08/18/21 polyethylene glycol 1 pwd MISCELLANEOUS DAILY PRN 08/18/21 08/18/21 sulfamethoxazole-trimethoprim See Rx Instructions .ROUTE .COMPLEX 08/18/21 08/18/21 tamsulosin 0.4 mg PO DAILY 08/18/21 08/18/21 thiamine HCl (vitamin B1) 100 mg PO DAILY 08/18/21 08/18/21 Allergies Allergy/AdvReac Type Severity Reaction Status Date / Time atorvastatin Allergy Unverified 08/21/21 17:58 codeine Allergy Unverified 08/21/21 17:58 General Stated Complaint: GenMedical AD: 2 Review of Systems Unobtainable due to mental status [facility] Social History Smoking/Tobacco Use Status: Unknown Smoking risk assessment performed?: Yes Do you feel safe at home: Yes Do you feel safe in your relationship?: Yes Exam Narrative Exam Narrative: Constitutional: acutely ill-appearing, moaning intermittently, eyes open without eye contact or interaction HENT: head atraumatic/normocephalic/normal inspection, mucous membranes dry Eyes: conjunctiva normal, sclera normal, pupils 3mm b/l, ERRLA, unable to assess EOM Neck: no stridor, normal ROM, trachea midline Chest: normal inspection Resp: increased work of breathing, LCTAB Cardio: tachycardic rate, normal rhythm, no murmur appreciated GI: abdomen soft, non-tender, non-distended : significant skin break down in groin, nava catheter in place, penis somewhat edematous without skin lesion, small amount of BRB in nava bag Back: normal inspection, no rash Skin: warm, dry, pallor present, no rash Neuro: altered, moving LUE only, GCS 10, not following commands Ext: no edema Course Vital Signs Vital signs: Vital Signs Temperature 36.6 C 08/24/21 09:13 Pulse 119 H 08/24/21 09:13 Respiratory Rate 25 H 08/24/21 09:13 Blood Pressure 64/39 L 08/24/21 09:13 Pulse Oximetry 86 L 08/24/21 09:13 Temperature 36.6 C 08/24/21 09:13 Temperature Source Skin 08/24/21 09:13 Pulse 119 H 08/24/21 09:13 Respiratory Rate 25 H 08/24/21 09:13 Respiratory Effort Labored 08/24/21 09:13 Blood Pressure 64/39 L 08/24/21 09:13 Blood Pressure Position Supine 08/24/21 09:13 Pulse Oximetry 86 L 08/24/21 09:13 Oxygen Delivery Method Non-Rebreather 08/24/21 09:13 Comment 08/24/21 09:13 Lab/Test Results Lab/Test Results: 08/24/21 09:18 Blood Blood Culture - Pending 08/24/21 09:18 Blood Blood Culture - Pending
[2021-08-24 09:20] LABS: Lactate 7.9 mmol/L (0.6-1.4)
[2021-08-24 09:22] LABS: Absolute Lymphocyte Count 0.19 10^3/uL (1.2-3.4); HCT 32.1 % (40.0-50.0); HGB 9.8 g/dL (13.5-17.5); MCH 30.2 pg (27.0-33.0); MCHC 30.5 % (32.0-36.0); MCV 98.8 fL (80-95); MPV 10.7 fL (8.0-11.0); Nucleated RBC 0 %; Platelet Count 128 10^3/uL (130-400); RBC 3.25 10^6/uL (4.36-5.78); RDW 17.9 % (11.8-14.1); RDW-SD 65.1 fL; WBC 2.15 10^3/uL (4.4-10.8)
[2021-08-24] MEDS: Normal Saline 1,000 ML 1000 ML IV ×2 (09:35→10:36)
[2021-08-24] MEDS: CEFEPIME 2 GM in Normal Saline 100 ML IVPB (09:36)
[2021-08-24 09:43] LABS: ALT 32 U/L (16-63); AST 102 U/L (15-37); Albumin 1.7 g/dL (3.4-5.0); Alkaline Phosphatase 278 U/L (46-116); Anion Gap 12.9 mmol/L (3-11); BUN 23 mg/dL (7-18); Bilirubin, Total 0.5 mg/dL (0.2-1.0); CO2 19.1 mmol/L (21.0-32.0); CREATININE 1.6 mg/dL (0.70-1.30); Chloride 102 mmol/L (98-107); Estimated GFR 43.87 (mL/min/1.73m2); Glucose 78 mg/dL (74-106); Magnesium 1.7 mg/dL (1.8-2.4); Potassium 4.2 mmol/L (3.5-5.1); Sodium 134 mmol/L (136-145); Total Protein 5.2 g/dL (6.4-8.2); Troponin I < 0.05 ng/mL (<0.06)
[2021-08-24] MEDS: VANCOMYCIN 1,500 MG in Normal Saline 250 ML 166.6666 MG IVPB (09:50)
[2021-08-24 10:11] LABS: Absolute Monocyte Count 0.04 10^3/uL (0.1-0.8); Absolute Neutrophil Count 1.87 10^3/uL (1.2-6.7); Bands % 12; Diff Comment Manual Differential; Metamyelocytes % 2; RBC Morphology Normal
--- NOTE | 2021-08-24 10:25 | NUR.NOTE ---
Esthela, pt's in at bedside and verbalizes that she just wants him comfortable, and does not believe a CAT scan is needed. Dr Phuong Moscoso in at this time talking with patient. New orders pending for pain medication per pt's request , pt does appear uncomfortable, facial grimacing.
--- NOTE | 2021-08-24 11:15 | NUR.NOTE ---
Pt remains hypotensive, Norepinephrine titrated up to 0.15mcg/kg/min, pt's and wifes sister remain at the bedside.Dr Phuong Moscoso is aware.
--- NOTE | 2021-08-24 11:35 | NUR.NOTE ---
Updated Dr Phuong Moscoso regarding continued hypotension. Will titrate Norepinephrine up at this time (Dr Phuong Moscoso aware pt is in the Vasodilatory shock range) Pt's remains at his bedside and reiterates I just want him comfortable when informed of continued low BP's.
[2021-08-24 12:26] LABS: Source Nasal/Nares
[2021-08-24 17:13] LABS: COVID-19 PCR Negative (Negative)
== END 2021-08-24 15:40 | disposition expired ==
PROVIDERS: Emergency Provider Student in an Organized Health Care Education/Training Program; PCP Nurse Practitioner
DX: R57.9 Shock, unspecified (principal); J96.00 Acute respiratory failure, unspecified whether with hypoxia or hypercapnia; R00.0 Tachycardia, unspecified; R40.2422 Glasgow coma scale score 9-12, at arrival to emergency department; Z51.5 Encounter for palliative care; Z20.822 Contact with and (suspected) exposure to COVID-19; Z03.818 Encounter for observation for suspected exposure to other biological agents ruled out
CPT/HCPCS: 36415; 36416; 80053; 82962; 87040; 87081; 87635; 93005; 96361; 96365; 96368; 96375; 96376; 99291; 71045; 83605; 83735; 84484; 85025; 93010